=== PATIENT | female | born 1965 | race Caucasian/White ===

== ENCOUNTER 2022-07-07 14:18 | Emergency (ER) | payer BC ==
[~2022-07-07] VITALS: Ht 162.6 cm; Wt 93.6 kg
[2022-07-07] MEDS ORDERED: ASPIRIN EC81 MG PO (15:03)
[2022-07-07] MEDS ORDERED: LEVOFLOXACIN 500 MG TAB PO ONE (17:30)
[2022-07-07] MEDS ORDERED: CEFDINIR300 MG PO (17:34)
[2022-07-07] MEDS ORDERED: LEVOFLOXACIN 500 MG TAB ONE (17:44)
== END 2022-07-07 17:52 | disposition home or self-care (01) ==
LOC: FSED 14:26
DX: R42 Dizziness and giddiness (principal); J18.9 Pneumonia, unspecified organism; R05.9 Cough, unspecified; R55 Syncope and collapse; R11.2 Nausea with vomiting, unspecified; R03.0 Elevated blood-pressure reading, without diagnosis of hypertension; I73.9 Peripheral vascular disease, unspecified; I10 Essential (primary) hypertension
CPT/HCPCS: 70450; 71046; 71250; 80053; 81003; 82553; 84484; 85025; 93005; 99284; U0002